=== PATIENT | male | born 1950 | race Caucasian/White ===

== ENCOUNTER → 2016-08-20 | Outpatient (CLI) | payer BC | LOC: GMAM 13:40 | PROVIDERS: ATTEND Family Medicine | DX: F31.30 Bipolar disorder, current episode depressed, mild or moderate severity, unspecified (principal); E83.42 Hypomagnesemia; E29.9 Testicular dysfunction, unspecified ==

== ENCOUNTER → 2016-10-19 | Outpatient (CLI) | payer BC | END | disposition home or self-care (01) | LOC: GMAM 11:25 | PROVIDERS: ATTEND Family Medicine | DX: M79.1 Myalgia (principal) ==

== ENCOUNTER → 2017-03-16 | Outpatient (CLI) | payer BC, SELFPAY ==
--- NOTE | 2017-03-16 12:54 | CT ---
EXAM DESCRIPTION: CT abdomen and pelvis without and with contrast CLINICAL HISTORY: HYPERLIPIDEMIA COMPARISON: None Available. TECHNIQUE: Pre and postcontrast spiral CT with coronal and sagittal reformatted images. This exam was performed according to our departmental dose-optimization program, which includes automated exposure control, adjustment of the mA and/or kV according to patient size and/or use of iterative reconstruction technique. FINDINGS: Visualized lung bases are clear. Heart size is normal No abnormality of the liver or gallbladder. No biliary duct dilation Cyst of the anterior lateral spleen 2.8 cm in greatest dimension. Spleen otherwise normal Pancreas, adrenal glands and kidneys are normal. No renal stone disease. Atherosclerotic aorta. No aneurysm. Noncalcified thrombus/plaque along the right lateral aspect of the infrarenal aorta just above the inferior mesenteric artery origin axial series 4 image 44. No evidence of high-grade stenosis renal arteries, superior mesenteric, celiac or inferior mesenteric arteries No mass lesion or inflammatory process in the stomach, small or large intestine. A couple of sigmoid diverticula without diverticulitis No pelvic soft tissue mass lesion, adenopathy or free fluid Remote tug lesion right ischium. 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 Osteoarthritis sacroiliac joints and pubic symphysis. Multilevel degenerative change in the lumbar spine. No acute abnormality IMPRESSION: 2.8 cm cyst of the spleen Atherosclerotic abdominal aorta with noncalcified plaque/thrombus along the right lateral wall occupying about 40% of the transverse dimension of the aorta over a short segment. No high-grade stenosis or aneurysm No acute inflammatory process seen in the abdomen or pelvis Electronically signed by: Jon Martinez MD 03/16/2017 12:53 PM CDT
== END | disposition home or self-care (01) ==
LOC: CT 08:57
PROVIDERS: ATTEND Family Medicine
DX: E78.2 Mixed hyperlipidemia (principal); I10 Essential (primary) hypertension; E29.9 Testicular dysfunction, unspecified; D45 Polycythemia vera; R31.21 Asymptomatic microscopic hematuria; L57.0 Actinic keratosis

== ENCOUNTER 2017-09-02 07:47 | Emergency (ER) | payer MEDICARE, OTHER ==
[2017-09-02 07:58] VITALS: TEMP 98.7
[2017-09-02] MEDS ORDERED: MORPHINE SULFATE INJ 10 MG/ML VIAL IM ONE (08:08)
[2017-09-02] MEDS ORDERED: ONDANSETRON INJ 4 MG/2 ML VIAL IM ONE (08:09)
--- NOTE | 2017-09-02 08:12 | ED.PDOC ---
History of Present Illness - General Chief Complaint: General Stated Complaint: SOB, R rib/flank discomfort Time Seen by Provider: 09/02/17 07:55 Source: patient, RN notes reviewed, Vital Signs reviewed, family Exam Limitations: no limitations - History of Present Illness Timing/Duration: 24 hours Severity: severe Improving Factors: nothing Worsening Factors: movement, other - deep breathing Associated Symptoms: chest pain, nausea/vomiting Allergies/Adverse Reactions: Allergies NO KNOWN ALLERGY Allergy (Verified 09/02/17 07:59) Home Medications: Ambulatory Orders Acetamin W/Cod #3 Tab [Tylenol w/CODEINE #3] 1 ea PO Q4HR PRN #20 tab 09/02/17 Cyclobenzaprine HCl [Flexeril] 1 - 2 mg PO TID PRN #20 tab 09/02/17 Ondansetron [Zofran Odt] 4 mg PO Q4HR PRN #15 tab 09/02/17 Review of Systems - Review of Systems Constitutional: States: no symptoms reported EENTM: States: no symptoms reported Respiratory: Denies: cough, short of breath Cardiology: Denies: no symptoms reported Gastrointestinal/Abdominal: States: nausea. Denies: diarrhea, vomiting Genitourinary: States: no symptoms reported Musculoskeletal: States: no symptoms reported. Denies: joint pain, joint swelling Skin: States: no symptoms reported. Denies: rash Neurological: States: no symptoms reported Endocrine: States: no symptoms reported Past Medical History (General) - Patient Medical History Hx Stroke: No Hx Congestive Heart Failure: No Hx Hypertension: Yes Hx Diabetes: No Surgical History: other - Vaccination History Hx Influenza Vaccination: Yes - 2016 Hx Pneumococcal Vaccination: No - Social History Hx Tobacco Use: Yes Hx Alcohol Use: Yes - social Family Medical History - Family History Father Family History: No Known Living Status: Physical Exam - Physical Exam General Appearance: Obvious distress Eye Exam: bilateral normal Ears, Nose, Throat: hearing grossly normal Respiratory: lungs clear, other - very tender R lower posterior ribs without bruising Cardiovascular/Chest: normal peripheral pulses, regular rate, rhythm, no edema Back Exam: normal inspection, no CVA tenderness, no vertebral tenderness Extremity: normal range of motion Skin Exam: normal color Progress - EKG/XRAY/CT XRAY: ribs are neg for Fx per rediology Departure - Departure Clinical Impression: Rib contusion Disposition: Discharge to Home or Self Care Departure Forms: ED Discharge - Pt. Copy, Patient Portal Self Enrollment Referrals: Jon Cr MD [Primary Care Provider] - 1-2 Weeks Prescriptions: Acetamin W/Cod #3 Tab [Tylenol w/CODEINE #3] 1 ea PO Q4HR PRN #20 tab PRN Reason: Moderate To Severe Pain Ondansetron [Zofran Odt] 4 mg PO Q4HR PRN #15 tab PRN Reason: Nausea Cyclobenzaprine HCl [Flexeril] 1 - 2 mg PO TID PRN #20 tab PRN Reason: Muscle Spasms Home Medications: Ambulatory Orders Acetamin W/Cod #3 Tab [Tylenol w/CODEINE #3] 1 ea PO Q4HR PRN #20 tab 09/02/17 Cyclobenzaprine HCl [Flexeril] 1 - 2 mg PO TID PRN #20 tab 09/02/17 Ondansetron [Zofran Odt] 4 mg PO Q4HR PRN #15 tab 09/02/17
--- NOTE | 2017-09-02 08:48 | RAD ---
EXAM DESCRIPTION: Ribs,Right 3 Views CLINICAL HISTORY: fell with lower R rib pain COMPARISON: None available FINDINGS: 5 views of the right-sided ribs were obtained. No acute right-sided rib fracture is identified. There is some calcification adjacent to the right ninth rib laterally which may be related to an old healed or healing fracture. There is no right-sided airspace consolidation or pleural fluid collection. No right-sided pneumothorax is seen. IMPRESSION: Old healed or healing right ninth rib fracture, but no acute right rib abnormality. Electronically signed by: Getachew Markham MD 09/02/2017 8:47 AM [facility]
[2017-09-02 09:23] VITALS: BP 147/71; O2SAT 95
== END 2017-09-02 09:10 | disposition home or self-care (01) ==
LOC: ER 07:47
DX: S20.219A Contusion of unspecified front wall of thorax, initial encounter (principal); I10 Essential (primary) hypertension; Z87.891 Personal history of nicotine dependence; X58.XXXA Exposure to other specified factors, initial encounter
CPT/HCPCS: 71101; J2270; J2405

== ENCOUNTER → 2017-11-09 | Outpatient (CLI) | payer MEDICARE, OTHER | LOC: GMAM 10:37 | PROVIDERS: ATTEND Family Medicine | DX: Z12.5 Encounter for screening for malignant neoplasm of prostate (principal); E29.1 Testicular hypofunction | CPT/HCPCS: 84403; G0103 ==

== ENCOUNTER → 2017-11-15 | Outpatient (CLI) | payer MEDICARE, OTHER ==
--- NOTE | 2017-11-15 14:37 | MRI ---
EXAM DESCRIPTION: Lumbar Spine w/o Contrast MRI. CLINICAL HISTORY: LUMBAR SPINE STENOSIS COMPARISON: None. TECHNIQUE: Multiplanar, multiple standard sequences, non contrast MRI, lumbar spine.. Technically difficult study due to patient large body habitus. FINDINGS: L5-S1: Disc desiccation and minimal posterior bulge. Small anterior spurs. Left partial laminectomy. Minimal facet arthrosis. Mild canal narrowing. Posterior lateral endplate disc spur complex encroaching on the foramina. Bilateral foraminal stenosis. L4-5: Disc desiccation with anterior bulging and endplate ridging. Trace retrolisthesis. Posterior disc space narrowing. Posterior minimal broad-based bulge. Schmorl's node L4. Modic type I right side endplate reactive changes. Partial left L5 laminectomy. Bilateral marked facet arthrosis with stenosis left foramen and borderline stenosis right foramen. L3-4: Disc desiccation and disc space preserved. Anterior bilateral disc bulge with endplate spurs. Marked facet arthrosis and ligament hypertrophy bilaterally. Bilateral shortened pedicles. Moderate canal stenosis. Bilateral narrowing of the subarticular recesses. Bilateral moderate foraminal narrowing. L2-3: Disc desiccation with disc space preserved. No posterior bulging. Moderate facet arthrosis and ligament hypertrophy impressing on the lateral thecal sac. Bilateral shortened pedicles. Mild canal stenosis. Bilateral narrowing subarticular recesses. Bilateral mild foraminal narrowing. L1-2: Disc desiccation minimal anterior bulging and endplate ridging. Bilateral posterior flavum ligament hypertrophy. Minimal facet arthrosis. Impressing on the bilateral thecal sac margins. Bilateral shortened pedicles. Borderline mild central canal stenosis. Bilateral moderate foraminal narrowing. Annular fissure in the right posterior disc involving the base of the foramen. T12-L1: Disc desiccation and anterior bulging with Modic type II endplate reactive changes and anterior spurs. Small Schmorl's nodes in the endplates. No posterior disc bulging. Minimal facet arthrosis and flavum ligament hypertrophy with moderate canal narrowing. Bilateral [id number] foraminal narrowing. Conus terminates at L1.. No scoliosis. Paravertebral soft tissues indicating fatty infiltration, with muscle atrophy. Transverse canal diameter of the aorta 2.6 cm at the L3-4 disc space level.. Normal marrow signal in the remaining vertebral bodies and the posterior elements. Vertebral bodies are not compressed at any level. IMPRESSION: 1. Canal narrowing or stenosis at multiple levels primarily due to shortened bony pedicles bilaterally and bilateral facet arthrosis and flavum ligament hypertrophy. 2. Left partial laminectomy L5-S1 with disc desiccation and bulge. Bilateral discs spur complexes encroaching on the foramina with bilateral foraminal stenosis. Correlate for bilateral L5 radiculopathy. 3. Partial laminectomy L4-5. Posterior disc bulge. Right side spondylosis. Bilateral marked facet arthrosis and bilateral foraminal stenosis. Correlate for bilateral L4 radiculopathy. 4. Multifactorial moderate canal stenosis at L3-4. Moderate foraminal narrowing. Bilateral narrowing of the subarticular recesses. 5. Multifactorial mild canal stenosis L2-3 with bilateral mild foraminal narrowing. Bilateral narrowing subarticular recesses. 6. Multifactorial borderline mild canal stenosis L1 to.. Electronically signed by: Saúl Baum MD 11/15/2017 2:36 PM CDT
== END ==
LOC: MRI 08:08
PROVIDERS: ATTEND Family Medicine
DX: M48.062 Spinal stenosis, lumbar region with neurogenic claudication (principal); M47.896 Other spondylosis, lumbar region

== ENCOUNTER → 2018-09-04 | Outpatient (CLI) | payer MEDICARE, OTHER ==
--- NOTE | 2018-09-04 14:22 | US ---
US THYROID CLINICAL STATEMENT: NODULE. COMPARISON: None FINDINGS: Size right thyroid lobe: 5.2 x 2.8 x 2.6 cm Size left thyroid lobe: 4.0 x 1.9 x 1.8 cm Size isthmus: 0.3 cm Estimated total number of nodules greater than or equal to 1 cm: 3 Nodule 1: Size: 1.1 x 0.8 x 0.8 cm Location: Right Upper Composition: solid or almost completely solid: 2 points Echogenicity: hypoechoic: 2 points Shape: wider than tall: 0 points Margins: smooth: 0 points Echogenic foci: None. ACR Total Points: 4; ACR TI-RADS risk category: TR4 - moderately suspicious nodule. Nodule 2: Size: 1.9 x 1.8 x 1.6 cm Location: Right Lower Composition: solid or almost completely solid: 2 points. Minimal vascularity of the periphery. Echogenicity: hypoechoic: 2 points Shape: wider than tall: 0 points Margins: smooth: 0 points. Subcapsular tissue is more hypoechoic. Echogenic foci: none: 0 points ACR Total Points: 4; ACR TI-RADS risk category: TR4 - moderately suspicious nodule. Nodule 3: Size: 0.4 x 0.3 x 0.2 cm Location: Left Mid Composition: solid or almost completely solid: 2 points Echogenicity: very hypoechoic: 3 points Shape: wider than tall: 0 points Margins: smooth: 0 points Echogenic foci: None. ACR Total Points: 5. Nodule 4: Size: 1.3 x 1.2 x 1.0 cm Location: Left Mid Composition: solid or almost completely solid: 2 points Echogenicity: very hypoechoic: 3 points Shape: wider than tall: 0 points Margins: smooth: 0 points Echogenic foci: none: 0 points ACR Total Points: 5; ACR TI-RADS risk category: TR4 - moderately suspicious nodule. The soft tissue around the thyroid gland shows no evidence of dominant solid mass or distinct cyst. No parenchymal edema or large calcifications. No overlying skin changes. Normal vascularity. IMPRESSION: 1. Nodule 1: ACR TI-RADS 2017 Category TR4. Recommend: Follow-up ultrasound in 1 year.. Recommendations based upon [facility] Best [employer] recommendations and ACR TI-RADS 2017 guidelines. Please see below*. 2. Nodule 2: ACR TI-RADS 2017 Category TR4. Recommend: Ultrasound-guided fine needle aspiration 3. Nodule 3: ACR TI-RADS 2017 Category TR4. Recommend: No further follow-up. 4. Nodule 4: ACR TI-RADS 2017 Category TR4. Recommend: Ultrasound-guided fine needle aspiration The soft tissue around the thyroid gland is unremarkable. *ACR TI-RADS 2017 Recommendations: TR1: No FNA or follow up TR2: No FNA or follow up TR3: FNA if >/= 2.5 cm, follow up if 1.5 - 2.4 cm in 1, 3, and 5 years TR4: FNA if >/= 1.5 cm, follow up if 1.0 - 1.4 cm in 1, 2, 3, and 5 years TR5: FNA if >/= 1.0 cm, follow up if 0.5 - 0.9 cm every year for 5 years ACR TI-RADS recommends that no more than two nodules with the highest ACR TI-RADS total point should be biopsied and no more than four nodules should be followed. Electronically signed by: Saúl Baum MD 09/04/2018 2:20 PM [facility]
== END ==
LOC: US 09:20
PROVIDERS: ATTEND Family Medicine
DX: E04.1 Nontoxic single thyroid nodule (principal)

== ENCOUNTER → 2018-09-07 | Outpatient (CLI) | payer MEDICARE, OTHER | LOC: GMAM 11:15 | PROVIDERS: ATTEND Family Medicine | DX: E04.1 Nontoxic single thyroid nodule (principal); M10.9 Gout, unspecified ==

== ENCOUNTER → 2019-03-07 | Outpatient (CLI) | payer MEDICARE, OTHER | LOC: GMAM 12:15 | PROVIDERS: ATTEND Family Medicine | DX: E04.1 Nontoxic single thyroid nodule (principal); I10 Essential (primary) hypertension; R73.09 Other abnormal glucose; E78.2 Mixed hyperlipidemia; M10.9 Gout, unspecified; R19.7 Diarrhea, unspecified ==

== ENCOUNTER → 2019-03-14 | Outpatient (CLI) | payer MEDICARE, OTHER | LOC: GMAM 14:40 | PROVIDERS: ATTEND Family Medicine | DX: Z12.5 Encounter for screening for malignant neoplasm of prostate (principal) ==

== ENCOUNTER → 2019-04-19 | Outpatient (CLI) | payer MEDICARE, OTHER ==
--- NOTE | 2019-04-19 16:47 | MRI ---
EXAM DESCRIPTION: Lumbar Spine w/o Contrast CLINICAL HISTORY: SPINAL STENOSIS COMPARISON: Previous MRI of the lumbar spine November 15, 2017 TECHNIQUE: MRI of the lumbar spine is performed according to our usual protocol with axial and sagittal multi sequence imaging. FINDINGS: Sagittal T2 images reveal decreased signal intensity consistent with desiccation of the intervertebral discs at all lumbar levels. Posterior annular bulges are most prominent at L4-5 and L5-S1. No prevertebral mass or aneurysm. Lower cord and conus appear normal. Tip of the conus is behind L1. No change in the sagittal images compared to previous study November 15, 2017. Sagittal T1 images reveal benign marrow signal characteristics. Normal T1 signal intensity and appearance of the lower cord and conus. Sagittal STIR images are negative for marrow edema within the vertebral bodies or posterior elements. No paraspinous fluid collection or cystic lesion. Axial T1 and T2-weighted images were obtained to evaluate the disc levels. T12-L1: No posterior annular bulge or herniation. No spinal stenosis. Moderate bilateral neural foraminal narrowing. Moderate facet hypertrophy right more than left. Normal appearance of the lower cord and conus. L1-2: Mild diffuse posterior annular bulge without focal herniation. No significant spinal stenosis. Marked facet hypertrophic changes bilaterally with mild narrowing of subarticular recesses and neural foramina. L2-3: Mild diffuse posterior annular bulge without focal herniation. Spinal canal is narrowed with thecal sac flattened and nerve roots crowded. In the mid sagittal plane, spinal canal measures 1.1 cm. Marked facet hypertrophic spurring is seen with moderate narrowing of subarticular recesses. Mild bilateral neural foraminal narrowing. L3-4: Moderate diffuse posterior bulge narrows the AP diameter of spinal canal to 9 mm in the mid sagittal plane. Marked facet hypertrophic spurring and ligamentum flavum thickening severely narrows subarticular recesses compressing the descending L4 nerve roots. Moderate left and [id number] right neural foraminal narrowing. L4-5: Moderately severe diffuse posterior annular bulge is seen with previous left laminectomy. No significant spinal stenosis. There is severe bilateral neural foraminal narrowing compressing the exiting L4 nerve roots. Moderate narrowing of subarticular recess is crowding the descending L5 nerve roots. Findings appear very similar to previous study with no definite change at this level. L5-S1: Mild posterior annular bulge without spinal stenosis. Sagittal images show severe bilateral neural foraminal narrowing compressing the exiting L5 nerve roots. Left hemilaminectomy is noted. Marked facet hypertrophy with severe right more than left subarticular recess narrowing impinging upon descending S1 nerve roots. Findings at this level appears stable compared to previous study. Upper sacrum appears intact. No retroperitoneal mass or aneurysm. IMPRESSION: Severe bilateral neural foraminal narrowing at L4-5 and L5-S1. Moderate multifactorial spinal stenosis at L3-4 unchanged from previous. Posterior left laminectomy defects at L4-5 and L5-S1. Electronically signed by: Yasmany Tijerina MD 04/19/2019 4:46 PM CDT
== END ==
LOC: MRI 09:00
PROVIDERS: ATTEND Family Medicine
DX: M48.062 Spinal stenosis, lumbar region with neurogenic claudication (principal); Z98.890 Other specified postprocedural states

== ENCOUNTER 2019-08-15 09:35 | Emergency (ER) | payer MEDICARE, OTHER ==
[2019-08-15 10:11] VITALS: O2SAT 95
--- NOTE | 2019-08-15 10:17 | RAD ---
EXAM DESCRIPTION: Abdomen Series CLINICAL HISTORY: 69 years Male, right flank pain 1 day COMPARISON: None. FINDINGS: The cardiomediastinal silhouette is unremarkable. Subsegmental atelectasis or scarring in the right lung base appears stable from September,. No airspace consolidation or pleural effusion. No free subdiaphragmatic gas or intra-abdominal air-fluid level. The bowel gas pattern is nonobstructive. Pelvic phleboliths. No apparent right-sided urinary tract calculus. Degenerative changes in the lumbar spine. IMPRESSION: Negative exam. No right-sided urinary tract calculus or additional abnormality to the right flank pain. Noncontrast CT should be considered if symptoms persist or worsen. Electronically signed by: Getachew Markham MD 08/15/2019 10:16 AM [facility]
[2019-08-15] MEDS ORDERED: POTASSIUM CHLORIDE ELIXIR 20 MEQ/15 ML UD PO ONE (10:19)
[2019-08-15] MEDS ORDERED: MORPHINE SULFATE INJ 10 MG/ML VIAL IV ONE (10:47)
--- NOTE | 2019-08-15 11:28 | CT ---
EXAM DESCRIPTION: Abdoment/Pelvis w/o Contrast CLINICAL HISTORY: 69 years Male, rt flank pain COMPARISON: 16 March 2017 TECHNIQUE: Transaxial images were obtained without intravenous or oral contrast media. Sagittal and coronal reconstruction was performed.This exam was performed according to our departmental dose-optimization program, which includes automated exposure control, adjustment of the mA and/or kV according to patient size and/or use of iterative reconstruction technique. FINDINGS: Small pleural plaques are observed on the right. Exam also reveals deformity of right-sided ribs from prior fracturing. The liver and spleen are unremarkable. A cyst is observed in the anterior margin of the spleen. No adrenal masses are detected. Gallstones are notified in the gallbladder. No biliary ductal dilatation is observed. The pancreas is normal in appearance. Calcific atherosclerotic changes observed in the abdominal aorta without evidence of aneurysmal dilatation. Imaging of the kidneys reveals no evidence of hydronephrosis mass cyst or calcification. No stones are seen along the course of the distal ureters. Mild prostatic hypertrophy is observed. No inguinal region abnormality is seen. No free pelvic fluid is observed. The appendix is identified and is normal in appearance. Diverticulosis of the colon is observed without evidence of diverticulitis. Degenerative changes are observed in the lower lumbar spine. IMPRESSION: 1. A splenic cyst is again observed unchanged. 2. Cholelithiasis. 3. No urinary tract calcifications are observed. 4. Uncomplicated diverticulosis of the colon. Electronically signed by: Freddie Rucker MD 08/15/2019 11:26 AM [facility]
[2019-08-15] MEDS ORDERED: AMOXICILLIN & POT CLAVULANATE 875 MG TAB PO ONE (11:43)
--- NOTE | 2019-08-15 11:47 | ED.PDOC ---
History of Present Illness - General Chief Complaint: Problem Stated Complaint: RIGHT FLANK PAIN, SENT FROM CLINIC Time Seen by Provider: 08/15/19 09:43 Source: patient Exam Limitations: no limitations - History of Present Illness Initial Comments: the patient 69-year-old male presented to emergency room secondary to right flank pain that is fairly high starting 24-48 hours ago. No nausea vomiting or diarrhea. No urinary symptoms. No pulmonary symptoms. No fever. No chest pain. No syncope. No history of diverticulitis. No history of kidney problems or gallbladder problems. No history of hepatitis. Timing/Duration: other Severity: moderate Improving Factors: nothing Worsening Factors: movement Associated Symptoms: denies symptoms Allergies/Adverse Reactions: Allergies NO KNOWN ALLERGY Allergy (Verified 08/15/19 10:06) Home Medications: Ambulatory Orders Acetamin W/Cod #3 Tab [Tylenol w/CODEINE #3] 1 ea PO Q4HR PRN #20 tab 09/02/17 Cyclobenzaprine HCl [Flexeril] 1 - 2 mg PO TID PRN #20 tab 09/02/17 Ondansetron [Zofran Odt] 4 mg PO Q4HR PRN #15 tab 09/02/17 Amoxicillin & Pot Clavulanate [Augmentin Tab] 875 mg PO BID #14 tab 08/15/19 Tramadol HCl 50 mg PO Q8HR PRN #20 tab 08/15/19 Review of Systems - Review of Systems Constitutional: States: no symptoms reported EENTM: States: no symptoms reported Respiratory: States: no symptoms reported Cardiology: States: no symptoms reported Gastrointestinal/Abdominal: States: no symptoms reported Genitourinary: States: no symptoms reported Musculoskeletal: States: back pain Skin: States: no symptoms reported Neurological: States: no symptoms reported Endocrine: States: no symptoms reported Hematologic/Lymphatic: States: no symptoms reported All other Systems: No Change from Baseline Past Medical History (General) - Patient Medical History Hx Seizures: No Hx Stroke: No Hx Dementia: No Hx Asthma: No Hx Cardiac Disorders: Yes Hx Congestive Heart Failure: No Hx Pacemaker: No Hx Hypertension: Yes Hx Thyroid Disease: No Hx Diabetes: No Hx Gastroesophageal Reflux: No Hx Renal Disease: No Hx Cancer: No Hx of HIV: No Hx Hepatitis C: No Hx MRSA: No - Vaccination History Hx Tetanus, Diphtheria Vaccination: Yes Hx Influenza Vaccination: Yes Hx Pneumococcal Vaccination: Yes Immunizations Up to Date: Yes - Social History Hx Tobacco Use: Yes Hx Chewing Tobacco Use: No Hx Alcohol Use: Yes - SOCIAL Hx Substance Use: No Hx Substance Use Treatment: No Hx Depression: No Feels Threatened In Home Enviroment: No Feels Threatened In a Relationship: No Hx Physical Abuse: No Hx Emotional Abuse: No Hx Suspected Abuse: No Family Medical History - Family History Father Family History: No Known Living Status: Physical Exam - Physical Exam General Appearance: Alert, No apparent distress Eye Exam: bilateral normal Ears, Nose, Throat: hearing grossly normal, normal ENT inspection Neck: full range of motion, supple Respiratory: no respiratory distress, no accessory muscle use, other - very mild rales at the right lung base. Cardiovascular/Chest: normal peripheral pulses, no edema, other - regular rate Peripheral Pulses: radial,right: 2+, radial,left: 2+ Gastrointestinal/Abdominal: non tender - obese, soft Rectal Exam: deferred Back Exam: no vertebral tenderness, other - pain towards the bottom of the rib cage on the right. Worse with palpation and movement. Extremity: normal range of motion, non-tender, normal inspection, no pedal edema, normal capillary refill Neurologic: video tape transferrer II-XII nml as tested, alert, normal mood/affect, oriented x 3 Skin Exam: normal color Comments: Vital Signs - 24 hr 08/15/19 10:07 Temperature 98.4 F Pulse Rate [ 65 Left Radial] Respiratory 18 Rate Blood Pressure 141/72 [Left Arm] O2 Sat by Pulse 95 Oximetry Progress - Progress Progress: 08/15/19 11:47 the patient is a 69-year-old male presenting with right flank pain. This may be due to early underlying infection at the bottom of the right lung as the patient does have some fluid collecting posteriorly on the CT scan. No evidence for other acute pathology has been found. It is certainly possible that the pain may be musculoskeletal. The patient will be placed on Augmentin for the next 7 days and he will be written for some tramadol for as needed use. He can additionally take Aleve twice daily for the next week with food to help reduce discomfort. I would encourage stretching exercises. A heat pad may also help. Follow-up with primary care doctor early next week otherwise. ER warnings were given. leann ferreira [phone] - Results/Orders Results/Orders: acute abdominal series appears benign. CT of abdomen and pelvis shows a small pleural effusion on the right. Otherwise no evidence of acute pathology. He does have diverticulosis. Laboratory Tests 08/15/19 08/15/19 08/15/19 09:52 09:52 11:15 WBC 9.4 RBC 4.86 Hgb 15.1 Hct 43.9 MCV 90.2 MCH 31.1 H MCHC 34.5 RDW 14.4 Plt Count 183 MPV 8.1 Absolute Neuts (auto) 7.20 H Absolute Lymphs (auto) 1.00 Absolute Monos (auto) 0.80 Absolute Eos (auto) 0.30 Absolute Basos (auto) 0.10 Neutrophils % 76.6 Lymphocytes % 10.6 L Monocytes % 8.8 Eosinophils % 3.4 Basophils % 0.6 Sodium 134 L Potassium 3.1 L Chloride 95 L Carbon Dioxide 28 Anion Gap 14.1 BUN 12 Creatinine 0.66 BUN/Creatinine Ratio 18.2 Random Glucose 149 H Serum Osmolality 270.8 L Lactic Acid 1.1 Calcium 8.7 Total Bilirubin 0.7 AST 23 ALT 17 Alkaline Phosphatase 60 Serum Total Protein 6.6 Albumin 3.7 Globulin 2.9 Albumin/Globulin Ratio 1.3 Amylase 24 L Lipase 28 Departure - Departure Clinical Impression: Acute right flank pain Disposition: Discharge to Home or Self Care Condition: Fair Departure Forms: ED Discharge - Pt. Copy, Patient Portal Self Enrollment Diet: low fat, low cholesterol Activity: increase activity as tolerated Referrals: Jon Ferreira MD [Primary Care Provider] - 1-2 Weeks Prescriptions: Tramadol HCl 50 mg PO Q8HR PRN #20 tab PRN Reason: Moderate Pain Amoxicillin & Pot Clavulanate [Augmentin Tab] 875 mg PO BID #14 tab Home Medications: Ambulatory Orders Acetamin W/Cod #3 Tab [Tylenol w/CODEINE #3] 1 ea PO Q4HR PRN #20 tab 09/02/17 Cyclobenzaprine HCl [Flexeril] 1 - 2 mg PO TID PRN #20 tab 09/02/17 Ondansetron [Zofran Odt] 4 mg PO Q4HR PRN #15 tab 09/02/17 Amoxicillin & Pot Clavulanate [Augmentin Tab] 875 mg PO BID #14 tab 08/15/19 Tramadol HCl 50 mg PO Q8HR PRN #20 tab 08/15/19 Additional Instructions: the patient is a 69-year-old male presenting with right flank pain. This may be due to early underlying infection at the bottom of the right lung as the patient does have some fluid collecting posteriorly on the CT scan. No evidence for other acute pathology has been found. It is certainly possible that the pain may be musculoskeletal. The patient will be placed on Augmentin for the next 7 days and he will be written for some tramadol for as needed use. He can additionally take Aleve twice daily for the next week with food to help reduce discomfort. I would encourage stretching exercises. A heat pad may also help. Follow-up with primary care doctor early next week otherwise. ER warnings were given.
[2019-08-15 12:08] VITALS: BP 164/87; TEMP 99.3
== END 2019-08-15 12:08 | disposition home or self-care (01) ==
LOC: ER 09:35
DX: R10.9 Unspecified abdominal pain (principal); I51.9 Heart disease, unspecified; I10 Essential (primary) hypertension; Z87.891 Personal history of nicotine dependence; Z79.899 Other long term (current) drug therapy

== ENCOUNTER → 2019-12-10 | Outpatient (CLI) | payer MEDICARE, OTHER | LOC: GMAM 15:35 | PROVIDERS: ATTEND Family Medicine | DX: L03.116 Cellulitis of left lower limb (principal) ==

== ENCOUNTER → 2019-12-14 | Outpatient (CLI) | payer MEDICARE, OTHER ==
--- NOTE | 2019-12-14 14:33 | US ---
EXAM DESCRIPTION: Venous,Lower Extremity LT CLINICAL HISTORY: PN IN LEFT LOWER LEG COMPARISON: None Available. TECHNIQUE: Left lower extremity venous duplex FINDINGS: There is no DVT identified. There is normal color flow observed with good flow augmentation. All deep veins compress normally. IMPRESSION: Negative for DVT Electronically signed by: Nidhi Valenzuela MD 12/14/2019 2:31 PM CDT
== END ==
LOC: GMAM 12:17
PROVIDERS: ATTEND Family Medicine
DX: M79.662 Pain in left lower leg (principal); L03.116 Cellulitis of left lower limb; E78.2 Mixed hyperlipidemia

== ENCOUNTER → 2020-05-23 | Outpatient (CLI) | payer MEDICARE, OTHER | LOC: GMAM 10:44 | PROVIDERS: ATTEND Family Medicine | DX: K80.63 Calculus of gallbladder and bile duct with acute cholecystitis with obstruction (principal); I10 Essential (primary) hypertension ==

== ENCOUNTER 2020-05-30 05:46 | Day surgery (SDC) | payer MEDICARE, OTHER ==
[2020-05-30] MEDS ORDERED: MAGNESIUM SULFATE INJ 1 GM/2 ML VIAL IVPB ONE (05:47)
[2020-05-30] MEDS ORDERED: GLYCOPYRROLATE 0.2 MG/ML VIAL IV ONE (05:47)
[2020-05-30] MEDS ORDERED: LIDOCAINE 1% 10 ML VIAL INJ ONE (05:47)
[2020-05-30] MEDS ORDERED: PROPOFOL 200 MG/20 ML VIAL IV ONE (05:47)
[2020-05-30] MEDS ORDERED: ePHEDrine SULF 50 MG/ML IV ONE (05:47)
[2020-05-30] MEDS ORDERED: DEXAMETHASONE INJ 10 MG/ML VIAL IV ONE (05:47)
[2020-05-30] MEDS ORDERED: LACTATED RINGERS 1,000 ML ONE (06:32)
[2020-05-30] MEDS ORDERED: ROCURONIUM BROMIDE 10 MG/ML VIAL ONE (08:49)
[2020-05-30] MEDS ORDERED: SUGAMMADEX SODIUM 200 MG/2 ML VIAL IV ONE (08:49)
[2020-05-30] MEDS ORDERED: MIDAZOLAM INJ 2 MG/2 ML VIAL ONE (08:49)
[2020-05-30] MEDS ORDERED: fentaNYL CITRATE INJ 50 MCG/ML 5 ML AMP ONE (08:49)
[2020-05-30] MEDS ORDERED: FAMOTIDINE INJ 10 MG/ML VIAL IV ONE (08:50)
[2020-05-30] MEDS: BUPIVACAINE 0.5% W/EPI 30 ML VIAL INJ ONE ×2 (09:33→09:45)
[2020-05-30] MEDS: HYDROmorphone HCL INJ 2 MG/ML VIAL ONE ×4 (10:05→11:37)
[2020-05-30] MEDS ORDERED: LEVALBUTEROL NEBS 1.25 MG/3 ML VIAL NEB ONE (11:34)
--- NOTE | 2020-05-30 11:36 | OP ---
DATE OF PROCEDURE: 05/30/20 PREOPERATIVE DIAGNOSIS: 1. History of choledocholithiasis status post ERCP with stent. 2. Cholelithiasis. POSTOPERATIVE DIAGNOSIS: 1. Choledocholithiasis. PROCEDURE: 1. Laparoscopic cholecystectomy with intraoperative cholangiogram. SURGEON: Johnathon Garrett MD. ANESTHESIA: William Kimball CRNA, general and local. FINDINGS: Mild chronic inflammation of the gallbladder and multiple small stones. Cholangiogram revealed retained common duct stones, multiple, generally small. The stent was not readily identified, but I am pretty sure it was there due to the rapid flow, so EGD with stent removal was not performed. COMPLICATIONS: None. ESTIMATED BLOOD LOSS: None. SPECIMEN: Gallbladder. PLAN: Discharge and refer to GI for stent removal. INDICATION: This man was relatively sick when he was in [place]. He had an ERCP with a stent. I did not have the details why they elected not to remove the gallbladder at that time, but he is now here a number of weeks later with referral for stent removal, but he also needs his gallbladder out. The ultrasound showed a contracted gallbladder with probable sludge or stones and the ERCP removed a single centimeter stone and additional stones and a stent was placed. He is consented for removal of the gallbladder, possible open, as well as EGD with possible stent removal. PROCEDURE: He was brought to the Operating Suite in supine position. General anesthesia was induced. The patient was prepped and draped in sterile fashion. Marcaine 0.5% with epinephrine was used at all incision sites. While maintaining upward traction, a sue was made near the base of the umbilicus. Veress needle was introduced. There was free flow of fluid into the peritoneal cavity which was insufflated to an appropriate level with CO2 gas. The 5 mm trocar was placed followed by the camera. There was no evidence of bleeding or bowel injury. The patient was positioned and subxiphoid and lateral ports were placed under direct visualization without difficulty. The gallbladder fundus was identified. It was grasped superiorly and laterally. Due to his body habitus inside, I had to place another 5 mm port and get an additional grasper to hold down the omentum so we could see the infundibulum. The infundibulum was grasped. The infundibular structures were dissected free. The duct and artery were clearly visualized through the triangle of Calot. A clip was placed on the proximal duct and ductotomy performed. He had tiny and small sized stones with a lot of sludge coming from the cystic duct. This was milked back and the duct irrigated. No additional stones were sone. The cholangiocatheter was introduced. The cholangiogram revealed continued choledocholithiasis, mostly small stones and sludge. There was free flow into the duodenum. I did not see the stent at this point, but it is not critical. Flow was good. Given this finding, we will not proceed with stent removal. The catheter was removed. Three clips were placed on the distal duct. The duct was ligated and the artery had been triply ligated. We then dissected the gallbladder off the fossa and removed in the EndoCatch bag. The fossa was examined. It remained hemostatic. The clips were intact. There was no bleeding or bile leakage. The area had been irrigated and all aspirate was clear. The subxiphoid fascia was then closed with 0 Vicryl using the suture passer. It was airtight and non-bleeding. The remaining trocars were removed. There was no bleeding from the trocar sites. The wounds were irrigated and closed with Monocryl. Dressings were applied. The patient was awakened and taken to Recovery. We will arrange GI followup likely in [place] for stent removal and stone extraction. #[id number] cc: Jon Cr MD [facility]
[2020-05-30] MEDS ORDERED: ONDANSETRON INJ 4 MG/2 ML VIAL ONE (11:49)
[2020-05-30] MEDS ORDERED: ONDANSETRON INJ 4 MG/2 ML VIAL IV ONE (11:50)
[2020-05-30] MEDS ORDERED: HYDROcodone 5MG/APAP 325MG 1 EA TAB ONE (12:05)
--- NOTE | 2020-05-30 13:12 | RAD ---
EXAM DESCRIPTION: Fluoroscopy Up to 1Hr CLINICAL HISTORY: 69 years Male, IOC COMPARISON: None. TECHNIQUE: An operative cholangiogram was performed with C-arm fluoroscopy with three permanent images submitted. Total fluoroscopic time is reported as 18 seconds with a dose of 4.8 mGy. FINDINGS: Fluoroscopic images submitted do not evaluate the intrahepatic filling of the common duct. The common hepatic duct and proximal common bile duct are unremarkable. There is heterogeneous filling of the distal common duct which tapers distally and appears to have irregularity of the duct wall and intraluminal debris or material. Final image demonstrates flow of contrast into duodenum without definite obstruction or well-defined filling defect. IMPRESSION: 1. Normal appearance of the common hepatic and proximal common bile duct with irregular debris-filled distal common duct that tapers to a small caliber with flow of contrast in the duodenum on the final image. A definite discrete stone or filling defect not identified. Electronically signed by: Jon Saldana MD 05/30/2020 1:10 PM CDT
[2020-05-30] MEDS ORDERED: LORazepam 1 MG TAB ONE (13:27)
[2020-05-30] MEDS ORDERED: LORazepam 1 MG TAB PO ONE (13:31)
[2020-05-30] MEDS ORDERED: MORPHINE SULFATE INJ 10 MG/ML VIAL ONE (13:37)
[2020-05-30] MEDS ORDERED: KETOROLAC TROMETHAMINE INJ 30 MG/ML VIAL ONE (14:30)
[2020-05-30 15:20] VITALS: BP 83/55; TEMP 97.1; O2SAT 95
--- NOTE | 2020-06-01 15:08 | PN ---
SUPERVISING PHYSICIAN: Kwabena Zhu MD DATE OF SERVICE: 06/01/20 SUBJECTIVE: The patient was in the hospital on 05/30/20 for a laparoscopic cholecystectomy per Dr. Johnathon Garrett. The patient called the hospital today requesting an increase in his pain medications as well as something for anxiety. His case was discussed with the surgeon, Dr. Johnathon Garrett, as well as his primary care physician, Dr. Jon Cr. After discussing interactions with benzodiazepines with pain medications, the patient understood the risk. I checked [facility] Aware and there were no issues found. I sent to [facility], Clonazepam 0.5 mg every 6 hours p.r.n. anxiety,#10, with no refills. I also sent him acetomorphine with codeine, Tylenol No. 3, one tablet p.o. every 4 hours p.r.n., #20, for pain. with not refills. I also informed Dr. Cr of the amount of pain medications I was sending in and patient is to call Dr. Cr's office for any other followup needed. #[id number] [facility]
== END 2020-05-30 15:22 | disposition home or self-care (01) ==
LOC: AMB 05:46
PROVIDERS: ATTEND Surgery
DX: K81.2 Acute cholecystitis with chronic cholecystitis (principal); J44.9 Chronic obstructive pulmonary disease, unspecified; I49.3 Ventricular premature depolarization; F17.200 Nicotine dependence, unspecified, uncomplicated; Z79.82 Long term (current) use of aspirin; Z79.899 Other long term (current) drug therapy
CPT/HCPCS: 00790; 47563; 76000; 88304; J1100; J1170; J1885; J2250; J2270; J2405; J3010; J3475; J3490; J7120; J7614

== ENCOUNTER 2020-06-15 14:04 | Emergency (ER) | payer MEDICARE, OTHER ==
[2020-06-15 14:35] VITALS: TEMP 97.9
[2020-06-15] MEDS ORDERED: SODIUM CHLORIDE 0.9% 1000ML 1,000 ML IVS ONE (14:36)
[2020-06-15] MEDS ORDERED: ACETAMINOPHEN 500 MG TAB PO ONE (14:36)
[2020-06-15] MEDS ORDERED: SODIUM CHLORIDE 0.9% (FLUSH) 10 ML SYG IV PRN (14:36)
--- NOTE | 2020-06-15 14:43 | ED.PDOC ---
History of Present Illness - General Chief Complaint: Fever Stated Complaint: fever,diarrhea,decreased sats Time Seen by Provider: 06/15/20 14:31 Source: patient, RN notes reviewed, Vital Signs reviewed, family Exam Limitations: no limitations - History of Present Illness Initial Comments: Pt is a 69 yo male who presents to ED with 1 week h/o fever to 102, nonproductive cough and diarrhea. States he had hgis gallbladder removed about 3 weeks ago and has been on Doxycycline and Keflex since leaving the hospital. Has had intermitent watery diarrhea for the past 10 days. Also reports fatigue, body aches and fever for the past week. Was seen by PCP last week with blood work that showed elevated WBC count. his symptoms continued, so they told him to come to ED for COVID test. He denies feeling short of breath, RAMON, N/V or neck stiffness. Review of Systems - Review of Systems Constitutional: States: fever, malaise. Denies: chills EENTM: Denies: ear pain, throat pain Respiratory: States: cough. Denies: short of breath Cardiology: Denies: chest pain, palpitations, syncope Gastrointestinal/Abdominal: States: diarrhea. Denies: abdominal pain, nausea, vomiting Genitourinary: Denies: dysuria, frequency Musculoskeletal: Denies: back pain, neck pain Skin: States: no symptoms reported Neurological: Denies: headache, paresthesia All other Systems: Reviewed and Negative Past Medical History (General) - Patient Medical History Hx Seizures: No Hx Stroke: No Hx Dementia: No Hx Asthma: No Hx of COPD: Yes Hx Cardiac Disorders: Yes - Atrial fib Hx Congestive Heart Failure: No Hx Pacemaker: No Hx Hypertension: Yes Hx Thyroid Disease: No Hx Diabetes: No Hx Gastroesophageal Reflux: No Hx Renal Disease: No Hx Cancer: No Hx of HIV: No Hx Hepatitis C: No Hx MRSA: No Surgical History: cholecystectomy - Vaccination History Hx Tetanus, Diphtheria Vaccination: Yes Hx Influenza Vaccination: Yes Hx Pneumococcal Vaccination: Yes - Social History Hx Tobacco Use: Yes Hx Chewing Tobacco Use: No Hx Alcohol Use: Yes - SOCIAL Hx Substance Use: No Hx Substance Use Treatment: No Hx Depression: No Hx Physical Abuse: No Hx Emotional Abuse: No Hx Suspected Abuse: No Family Medical History - Family History Father Family History: No Known Living Status: Physical Exam - Physical Exam General Appearance: Alert, Comfortable, No apparent distress, Other - Nontoxic appearing Neck: non-tender, full range of motion, supple, other - No meningismus Respiratory: chest non-tender, lungs clear, normal breath sounds, no respiratory distress, no accessory muscle use Cardiovascular/Chest: normal peripheral pulses, regular rate, rhythm, no edema Gastrointestinal/Abdominal: other - Obese, soft, NTTP in all quadrants Extremity: normal range of motion, non-tender, normal inspection, no calf tenderness Neurologic: no motor/sensory deficits, alert, normal mood/affect Skin Exam: normal color, warm/dry Progress - Progress Progress: 06/15/20 17:00 Patient presents to ED with 10-day history of intermittent fever, diarrhea and body aches. He has been on Keflex and doxycycline for the past 10 days. He has no hypoxia or respiratory distress in the ED. Chest x-ray is unremarkable. He has been unable to provide stool sample for C. difficile testing in ED and I have advised him he will need to follow-up with his primary care doctor tomorrow for further testing. He feels comfortable going home and will follow up with PCP in clinic tomorrow. Strict return precautions given. - Results/Orders Results/Orders: CHEST XRAY XR CHEST 1 VIEW CLINICAL STATEMENT: fever COMPARISON: 09/02/2017 FINDINGS: Heart is moderately enlarged. There is no focal lung consolidation or pleural effusion. No evidence of pulmonary edema or pneumothorax. IMPRESSION: No acute cardiopulmonary disease. 06/15/20 14:36 Telemetry .ONCE Sodium Chloride 0.9% (Flush) [Saline Flush Syringe] 10 ml IV PRN PRN URINE CULTURE W/COLONY COUNT Stat Pulse Ox Stat URINALYSIS Stat 06/15/20 14:39 CLOSTRIDIUM DIFFICILE AG/TOXIN Stat 06/15/20 15:07 BLOOD CULTURE Stat 06/15/20 16:47 LACTIC ACID Q2H Laboratory Results - last 24 hr 06/15/20 06/15/20 06/15/20 15:07 15:07 15:07 WBC 9.3 RBC 4.24 L Hgb 12.7 L Hct 37.0 L MCV 87.3 MCH 30.0 MCHC 34.4 RDW 14.6 H Plt Count 341 MPV 8.5 Absolute Neuts (auto) 6.80 Absolute Lymphs (auto) 1.10 Absolute Monos (auto) 1.20 H Absolute Eos (auto) 0.10 Absolute Basos (auto) 0.10 Neutrophils % 72.8 Lymphocytes % 12.1 L Monocytes % 13.5 H Eosinophils % 0.6 L Basophils % 1.0 PT 11.5 H INR 1.16 H PTT (SP) 33.5 H Sodium 132 L Potassium 3.4 L Chloride 92 L Carbon Dioxide 26 Anion Gap 17.4 BUN 16 Creatinine 0.92 BUN/Creatinine Ratio 17.4 Random Glucose 112 H Serum Osmolality 266.5 L Lactic Acid Calcium 8.5 Total Bilirubin 0.6 AST 20 ALT 21 Alkaline Phosphatase 97 Serum Total Protein 6.9 Albumin 3.0 L Globulin 3.9 H Albumin/Globulin Ratio 0.8 L 06/15/20 15:07 WBC RBC Hgb Hct MCV MCH MCHC RDW Plt Count MPV Absolute Neuts (auto) Absolute Lymphs (auto) Absolute Monos (auto) Absolute Eos (auto) Absolute Basos (auto) Neutrophils % Lymphocytes % Monocytes % Eosinophils % Basophils % PT INR PTT (SP) Sodium Potassium Chloride Carbon Dioxide Anion Gap BUN Creatinine BUN/Creatinine Ratio Random Glucose Serum Osmolality Lactic Acid 1.2 Calcium Total Bilirubin AST ALT Alkaline Phosphatase Serum Total Protein Albumin Globulin Albumin/Globulin Ratio Departure - Departure Clinical Impression: Acute febrile illness Diarrhea Qualifiers: Diarrhea type: unspecified type Qualified Code(s): R19.7 - Diarrhea, unspecified Time of Disposition: 16:54 Disposition: Discharge to Home or Self Care Condition: Good Departure Forms: ED Discharge - Pt. Copy, Patient Portal Self Enrollment Instructions: [place] Diet Diet: bland diet Activity: increase activity as tolerated Referrals: Jon Cr MD [Primary Care Provider] - 1-2 Days Home Medications: Ambulatory Orders Aspirin [Aspirin 81 Low Dose] 81 mg PO DAILY 05/26/20 Carvedilol Phosphate 25 mg PO BID 05/26/20 Chlorthalidone 25 mg PO DAILY 05/26/20 Divalproex Sodium [Divalproex Sodium ER] 500 mg PO BEDTIME 05/26/20 Fluoxetine HCl [Fluoxetine Hydrochloride] 40 mg PO DAILY 05/26/20 Yquddszciqf-Kqqvbpduqemi-Ftxqa [Trelegy Ellipta 100-62.5-25 Mcg/INH] 1 inh PO DAILY 05/26/20 Girard-3 Fatty Acids [Girard 3 500 500 mg] 1 cap PO DAILY 05/26/20 Oxcarbazepine 150 mg PO .6TIMES/DAY 05/26/20 Potassium Chloride [Potassium Chloride ER] 10 meq PO BID 05/26/20 Rivaroxaban [Xarelto] 20 mg PO DAILY 05/26/20 Tadalafil 5 mg PO DAILY 05/26/20 Cephalexin 500 mg PO QID 06/15/20 Doxycycline (Monohydrate) [Doxycycline Monohydrate] 100 mg PO BID 06/15/20 Additional Instructions: follow up with your PCP tomorrow for continued evaluation. You will likely need to give a stool sample to rule out C Diff causing your diarrhea due to being on antibiotics recently.
--- NOTE | 2020-06-15 15:21 | RAD ---
XR CHEST 1 VIEW CLINICAL STATEMENT: fever COMPARISON: 09/02/2017 FINDINGS: Heart is moderately enlarged. There is no focal lung consolidation or pleural effusion. No evidence of pulmonary edema or pneumothorax. IMPRESSION: No acute cardiopulmonary disease. Electronically signed by: Grover Knott MD 06/15/2020 3:20 PM [employer]CH[employer]UCATION [employer]ER
[2020-06-15 17:16] VITALS: BP 114/60; O2SAT 96
== END 2020-06-15 17:15 | disposition home or self-care (01) ==
LOC: ER 14:04
DX: R50.9 Fever, unspecified (principal); R05 Cough; R19.7 Diarrhea, unspecified; I10 Essential (primary) hypertension; I48.91 Unspecified atrial fibrillation; J44.9 Chronic obstructive pulmonary disease, unspecified; Z20.828 Contact with and (suspected) exposure to other viral communicable diseases; Z87.891 Personal history of nicotine dependence; Z90.49 Acquired absence of other specified parts of digestive tract; Z79.01 Long term (current) use of anticoagulants; Z79.82 Long term (current) use of aspirin
CPT/HCPCS: 36415; 71045; 80053; 83605; 85025; 85610; 85730; 87040; 87635; 94760; J7030

== ENCOUNTER → 2020-09-29 | Outpatient (CLI) | payer MEDICARE, OTHER | LOC: GMAM 11:24 | PROVIDERS: ATTEND Family Medicine | DX: Z12.5 Encounter for screening for malignant neoplasm of prostate (principal); M10.9 Gout, unspecified; F31.60 Bipolar disorder, current episode mixed, unspecified; I10 Essential (primary) hypertension; R73.9 Hyperglycemia, unspecified | CPT/HCPCS: 80164; 84550; G0103 ==